=== PATIENT | male | born 1955 | race Caucasian/White ===

== ENCOUNTER 2019-01-11 15:10 | Emergency (ER) | payer OTHER ==
[2019-01-11] MEDS ORDERED: HYDROCODONE/ACETAMINOPHEN 5-325 MG TABLET PO ONE (16:25)
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
--- NOTE | 2019-01-11 17:44 | RADIOLOGY REPORT (SQ) ---
EXAM DESCRIPTION: ELBOW BILATERAL 2 VIEWS MIN COMPLETED DATE/TIME: 01/11/2019 5:26 pm REASON FOR STUDY: bilateral elbow pain, injury COMPARISON: None. FINDINGS: Two views left elbow: No radiographic abnormality. Two views right elbow: No radiographic abnormality. TECHNICAL DOCUMENTATION: JOB ID: [id number] Reading location - IP/workstation name: [email or web address]
--- NOTE | 2019-01-11 17:45 | RADIOLOGY REPORT (SQ) ---
EXAM DESCRIPTION: TIBIA FIBULA LEFT COMPLETED DATE/TIME: 01/11/2019 5:26 pm REASON FOR STUDY: left tibia pain, injury COMPARISON: None. NUMBER OF VIEWS: Two views left tibia and fibula. 4 images obtained. LIMITATIONS: None. FINDINGS: There is no acute or significant bone, joint or soft tissue abnormality. OTHER: No other significant finding. IMPRESSION: NORMAL STUDY. TECHNICAL DOCUMENTATION: JOB ID: [id number] Reading location - IP/workstation name: [email or web address]
[2019-01-11 18:19] VITALS: BP 143/78
== END 2019-01-11 18:11 | disposition home or self-care (01) ==
LOC: ER 15:10
DX: S50.00XA Contusion of unspecified elbow, initial encounter (principal); S80.12XA Contusion of left lower leg, initial encounter; V29.9XXA Motorcycle rider (driver) (passenger) injured in unspecified traffic accident, initial encounter; F17.210 Nicotine dependence, cigarettes, uncomplicated; I25.10 Atherosclerotic heart disease of native coronary artery without angina pectoris; I10 Essential (primary) hypertension
CPT/HCPCS: 99283